=== PATIENT | male | born 2000 | race African-American/Black ===

== ENCOUNTER 2021-06-18 06:44 | Emergency (ER) | payer OTHER ==
[~2021-06-18] VITALS: Ht 195.6 cm; Wt 73.0 kg
[2021-06-18 07:30] VITALS: BP 154/98
[2021-06-18 08:00] LABS: BASOPHILS % 1.1 % (0.0-2.0); EOSINOPHILS % 0.8 % (0.0-5.0); HEMATOCRIT. 37.3 % (42.0-52.0); HEMOGLOBIN. 12.3 g/dL (14.0-18.0); LYMPHOCYTES % 11.2 % (20.0-50.0); MEAN CORPUSCULAR HEMOGLOBIN 29.4 pg (28.0-32.0); MEAN CORPUSCULAR VOLUME 89.5 fL (80.0-94.0); MEAN PLATELET VOLUME 7.8 fl (7.4-10.4); MONOCYTES % 8.3 % (2.0-8.0); NEUTROPHILS % 78.6 % (40.0-76.0); PLATELET 303 x1000/uL (130-400); RED BLOOD CELL COUNT 4.17 mill/uL (4.7-6.1); RED CELL DISTRIBUTION WIDTH 12.3 % (11.6-14.6)
[2021-06-18 08:08] LABS: CHLORIDE 111 mEq/L (98-107)
[2021-06-18 08:12] LABS: ETHANOL BLOOD < 10 mg/dL
[2021-06-18 08:21] LABS: VALPROIC ACID < 3.0 ug/mL (50-100)
[2021-06-18] MEDS ORDERED: DIVA-18 PO (08:34)
[2021-06-18] MEDS ORDERED: DIVALPROEX SODIUM 500MG ER TABLET PO ONE (08:45)
== END 2021-06-18 09:08 | disposition home or self-care (01) ==
LOC: ER 06:44
DX: G40.909 Epilepsy, unspecified, not intractable, without status epilepticus (principal); Z91.14 Patient's other noncompliance with medication regimen
CPT/HCPCS: 36415; 80053; 80165; 80320; 85025; 93005; 99284; G0480